=== PATIENT | male | born 1985 | race Caucasian/White ===

== ENCOUNTER 2019-02-19 01:44 | Emergency (ER) | payer MEDICAID, OTHER ==
[~2019-02-19] VITALS: Ht 182.9 cm; Wt 75.7 kg
[2019-02-19 01:59] VITALS: BP 132/82
--- NOTE | 2019-02-19 02:01 | NUR ---
FIRST CONTACT WITH PT. PT PRESENTS TO THE ED TONIGHT AND STATES "PENIS PAIN" WHEN ASKED WHY HE CAME TO THE ER. PT STATES HE THINKS IT'S PROBABLY SEXUALLY RELATED AND THAT HE THINKS HIS FORESKIN IS INFECTED HE'S UNCIRCUMCISED. PT'S AOX4. RESPS EVEN AND UNLABORED. BP/SPO2 MONITORS IN PLACE. EDMD AT BEDSIDE TO EVALUATE AT THIS TIME.
[2019-02-19] MEDS ORDERED: AZITHROMYCIN 500 MG TABLET ONE (02:16)
--- NOTE | 2019-02-19 02:19 | NUR ---
PT MEDICATED PER EMAR. PT TOLERATED WELL.
[2019-02-19] MEDS ORDERED: AZITHROMYCIN 500 MG TABLET PO ONE (02:30)
--- NOTE | 2019-02-19 02:33 | NUR ---
Patient given discharge instructions and they have confirmed that they understand the instructions. Patient ambulatory with steady gait.
== END 2019-02-19 02:34 | disposition home or self-care (01) ==
LOC: ED 02:23
DX: A57 Chancroid (principal); B37.42 Candidal balanitis; F17.200 Nicotine dependence, unspecified, uncomplicated
CPT/HCPCS: 99282

== ENCOUNTER 2019-02-26 05:02 | Emergency (ER) | payer MEDICAID ==
[~2019-02-26] VITALS: Ht 182.9 cm; Wt 79.2 kg
[2019-02-26 05:04] VITALS: BP 123/81
== END 2019-02-26 06:57 | disposition home or self-care (01) ==
LOC: ED 05:50
DX: N50.9 Disorder of male genital organs, unspecified (principal)
CPT/HCPCS: 36415; 80048; 82040; 85025; 86592; 86780; 96372; 99283; J0561

== ENCOUNTER 2020-12-15 00:41 | Emergency (ER) | payer MEDICAID ==
[~2020-12-15] VITALS: Ht 182.9 cm; Wt 76.2 kg
[2020-12-15] MEDS ORDERED: HYDROcodone/APAP 5/325 TABLET ONE (01:07)
[2020-12-15] MEDS ORDERED: HYDROcodone/APAP 5/325 TABLET PO ONE (01:30)
[2020-12-15 03:20] VITALS: BP 121/87
== END 2020-12-15 03:23 | disposition home or self-care (01) ==
LOC: ED 03:00
DX: M25.551 Pain in right hip (principal); M79.651 Pain in right thigh
CPT/HCPCS: 99283